=== PATIENT | male | born 1995 | race Caucasian/White ===

== ENCOUNTER 2021-02-12 18:25 | Emergency (ER) | payer OTHER, SELFPAY ==
[2021-02-12 18:28] VITALS: BP 128/73; PULSE 70; RESP 20; TEMP 37.2; O2SAT 98
[2021-02-12 19:44] LABS: HIV 1/2 Ab P24 Ag Result Negative (Negative)
[2021-02-12 20:27] LABS: Hepatitis B Surface Anti Res Negative; Hepatitis C Virus Antibody Negative (Negative)
--- NOTE | 2021-02-12 20:53 | ED.GENADULT ---
HPI - General Adult General Chief complaint: Unspecified Stated complaint: needle stick Time Seen by Provider: 02/12/21 18:51 Source: patient Mode of arrival: ambulatory Limitations: no limitations History of Present Illness HPI narrative: Patient is a 25-year-old male with chief complaint of needlestick to the left thumb after giving the patient a vaccination. Patient reports the scratch is very superficial and cannot be seen at this time. He reports only a few drops of blood came out then quickly stopped. Patient reports that he washed the area with antibacterial soap thoroughly. Patient denies history of HIV or hepatitis. Patient reports being vaccinated against hepatitis B. patient denies any other questions or concerns. Related Data Allergies Allergy/AdvReac Type Severity Reaction Status Date / Time bee venom protein (honey bee) Allergy Anaphylaxis Verified 02/12/21 18:43 [bees] Review of Systems Review of Systems: CONSTITUTIONAL: Denies fever, chills, or sweats. EYES: Denies visual changes, redness, or discharge. ENT: Denies rhinorrhea, congestion, sore throat, or otalgia. CARDIOVASCULAR: Denies chest pain, palpitations, or edema. RESPIRATORY: Denies cough or dyspnea. GASTROINTESTINAL: Denies abdominal pain, nausea, vomiting, or diarrhea. GENITOURINARY: Denies dysuria or hematuria. SKIN: Reports needlestick denies rash or itching. MUSCULOSKELETAL: Denies back pain, joint pain, or myalgia. NEUROLOGIC: Denies headache, numbness, dizziness, or weakness. PSYCHIATRIC: Denies anxiety or depression. Exam Narrative: GENERAL: Well-appearing, well-nourished, and in no acute distress. HEAD: Normocephalic, atraumatic. EYES: PERRLA and EOMI. CHEST: No respiratory distress. No wheezes rales or rhonchi. No tachypnea ABDOMEN: Soft, nontender, nondistended, normal active bowel sounds. EXTREMITIES: Normal range of motion. No edema. SKIN: Very superficial scratch to the left thumb, not bleeding. warm, dry, no rash. NEURO: No focal deficits. Alert and oriented x3. PSYCH: Normal mood and affect. Course Vital Signs Vital signs: Vital Signs Temperature 98.9 F 02/12/21 18:28 Pulse Rate 70 02/12/21 18:28 Respiratory Rate 20 02/12/21 18:28 Blood Pressure 128/73 02/12/21 18:28 Pulse Oximetry 98 02/12/21 18:28 Temperature 98.9 F 02/12/21 18:28 Pulse Rate 70 02/12/21 18:28 Respiratory Rate 20 02/12/21 18:28 Blood Pressure 128/73 02/12/21 18:28 Pulse Oximetry 98 02/12/21 18:28 Medical Decision Making MDM Narrative Medical decision making narrative: Patient has been given CDC handout about blood exposures. Patient would like to receive HIV PEP. Discussed risk-benefit profile. Discussed the need to follow-up with primary care for repeat testing. Patient verbalized understanding agreement denies any other needs or concerns. Patient states he is up-to-date on tetanus. Vital Signs Vital Signs: Vital Signs Temperature 98.9 F 02/12/21 18:28 Pulse Rate 70 02/12/21 18:28 Respiratory Rate 20 02/12/21 18:28 Blood Pressure 128/73 02/12/21 18:28 Pulse Oximetry 98 02/12/21 18:28 Temperature 98.9 F 02/12/21 18:28 Pulse Rate 70 02/12/21 18:28 Respiratory Rate 20 02/12/21 18:28 Blood Pressure 128/73 02/12/21 18:28 Pulse Oximetry 98 02/12/21 18:28 Lab Data Labs: Lab Results 02/12/21 02/12/21 Range/Units 18:38 18:38 Hep Bs Antibody Negative Hepatitis C Ab Screen Negative (Negative) HIV 1&2 Ab/P24 Ag 4thGn Negative (Negative) Discharge Plan Discharge Clinical Impression: Exposure to blood Patient Disposition: Home, Self-Care Condition: Improved Instructions: Antibiotic Form, Postexposure Prophylaxis (ED) Additional Instructions: Take HIV prophylactic medication as directed. Follow-up with your primary care for further evaluation and retesting as instructed. Repeat blood exposure document from the CDC for additional inform
[2021-02-12 21:59] LABS: Hepatitis B Surface Antigen Negative (Negative)
[2021-02-12 22:05] LABS: HAV RESULT Negative (Negative); Hepatitis B Core IgM Result Negative (Negative)
== END 2021-02-12 21:10 | disposition home or self-care (01) ==
PROVIDERS: Emergency Medicine; Physician Assistant; Emergency Provider Family Medicine
DX: Z77.21 Contact with and (suspected) exposure to potentially hazardous body fluids (principal)
CPT/HCPCS: 36415; 86703; 86705; 86706; 86709; 86803; 87340; 99283; G0432